=== PATIENT | male | born 1935 | race Caucasian/White ===

== ENCOUNTER → 2019-03-08 | Outpatient (CLI) | payer MEDICARE, OTHER ==
[~2019-03-08] MED LIST: REGADENOSON 0.4 MG/5 ML DISP.SYRIN. IV ONE
--- NOTE | 2019-03-08 08:23 | RAD ---
MR#: [id number] Date of Study: 03/08/2019 Ordering Physician: NICHOLAS EARLY, Referring Physician: NICHOLAS EARLY, Tech: Alonso Wong MBA, RDMS, RVT, RDCS, RTR APPROVED REPORT Patient Location : OUT-PATIENT Indications venous insufficiency Greater Saphenous Veins (GSV) Significant venous relux noted in the LEFT GSV at the following levels : Superficial Femoral Junction , Proximal Calf, Mid Thigh, Distal Thigh Lesser Saphenous Veins (LSV) Significant venous reflux is noted in the Left LSV. Perforators Thigh Perforators Calf Perforators Left: cm up from medial heel 15cm back from the anterior border of tibia 3 diameter 5mm. Findings Grayscale images of the right great saphenous vein do not reveal any obvious evidence of thrombus. Th e right great saphenous vein measures 5.3 mm and does not show any evidence of reflux. The right less er saphenous vein also does not show any evidence of reflux. The left great saphenous vein measures approximately 5.3 mm proximally. The great saphenous vein is n ot well visualized in the thigh. Below the knee it measures approximately 4.3 mm and has a maximum re flux time of 2.9 seconds. The left lesser saphenous vein has a reflux time of 1.1 seconds and measure s approximately 4.7 mm. There is subcutaneous soft tissue edema and a military communications specialist noted at approximately 15 cm up in 3 cm back on the left side from the ankle measuring 5.1 mm. Critical Notification Critical Value: No <Conclusion> 1. Positive for reflux in the left greater and lesser saphenous veins. Signed by : Elvis Rincon, Electronically Approved : 03/08/2019 08:22:33
--- NOTE | 2019-03-08 11:50 | RAD ---
MR#: [id number] Date of Study: 03/08/2019 Ordering Physician: NICHOLAS EARLY Referring Physician: HOLLIE RIVAS Tech: RT Randolph Light) (N) APPROVED REPORT Test Type: Pharmacological Stress Nurse/Tech: Cece Magana RN Test Indications: CAD Cardiac History: Enlarged heart Medications: See Electronic Medical Record Medical History: See Electronic Medical RecordSee Electronic Medical Record Resting ECG: SR with BBB Resting Heart Rate: 89 bpm Resting Blood Pressure: 137/81mmHg Pretest Chest Pain: No chest pain Nurse/Tech Notes S1,S2 and lungs are clear to auscultation. Consent: The procedure was explained to the patient in lay terms. Informed consent was witnessed. Shantanu eout was entered into [employer]. History and Stress Test performed by RT Violet CruzR) (N) Pharm. Details Pharmacologic stress testing was performed using 0.4mg per 5ml of regadenoson given intravenously ove r 7-10 seconds. Stress Symptoms Dyspnea,chest pressure midsternum 3/10 POST EXERCISE Reason for Termination: Infusion complete Target HR: No Max HR: 108 bpm Max Blood Pressure: 146/70mmHg Blood Pressure response to exercise: Normal blood pressure response during stress. Heart Rate response to exercise: WNL Chest Pain: Yes. see note above Arrhythmia: Yes. PVC ST Change: No. INTERPRETATION Stress EKG Conclusion: No evidence of stress induced EKG changes. Imaging Protocol IMAGE PROTOCOL: Rest Tc-99m/stress Tc-99m 1 day Rest: Stress: Viability: Radiopharm.Tc99m [id number] Sestamibi Dose10.8mCi 33mCi Duration 15min. 15min. Img Date 03/08/2019 03/08/2019 Inj-Img [id number]. 60min. Rest Admin Site:IV - Right AntecubitalAdministrator:RT Anthony (Krista)(N) Stress Admin Site: IV - Right AntecubitalAdministrator: PERNELL Sarmiento STRESS DATA End Diast. Vol.81.0mlLVEDV index BSA34.0ml End Syst. Vol.22.0mlLVESV index BSA9.0ml Myocardial Zcig506.0gEject. Bqgtyjfs57.0% Stress Scores Regional WT0.00Summed WT1.00 Regional WM3.00Summed WM8.00 The rest and stress images show normal perfusion, normal contraction and thickening. LV Perf. Quant 17 Seg. SSS4.00 17 Seg. SRS3.00 17 Seg. SDS2.00 Stress Defect Extent (% LAD)0.00Rest Defect Extent (% LAD)0.00Rev. Defect Extent (% LAD)0.00 Stress Defect Extent (% LCX) 47.50Rest Defect Extent (% LCX)30.00Rev. Defect Extent (% LCX)10.00 Stress Defect Extent (% RCA)0.00Rest Defect Extent (% RCA)0.00Rev. Defect Extent (% RCA)0.00 Stress Defect Extent (% MAN)8.30Rest Defect Extent (% MAN)5.20Rev. Defect Extent (% MAN)1.70 Other Information Quality:Good Risk Assessment: Low Risk Conclusion 1. No evidence of EKG changes with stress testing. 2. Normal perfusion at stress/rest. 3. Low risk study. 4. EF > 60%. Signed by : Elvis Rincon, Electronically Approved : 03/08/2019 11:50:26
== END | disposition home or self-care (01) ==
LOC: NM 07:19
PROVIDERS: ATTEND Internal Medicine Cardiovascular Disease
DX: I87.2 Venous insufficiency (chronic) (peripheral) (principal); I45.4 Nonspecific intraventricular block; I25.10 Atherosclerotic heart disease of native coronary artery without angina pectoris
CPT/HCPCS: 78452; 93017; 93970; J2785

== ENCOUNTER 2021-12-26 17:51 | Inpatient (IN) | payer MEDICARE, OTHER ==
[~2021-12-26] VITALS: Ht 182.9 cm; Wt 94.1 kg
[2021-12-26 18:28] VITALS: BP 123/73
[2021-12-26] MEDS ORDERED: HEPARIN for IV BOLUS 10,000 UNIT/10 ML VIAL. IV PRN ×2 (19:00)
[2021-12-26] MEDS ORDERED: HEPARIN 25,000UTS/250ML PREMIX 250 ML IV PRN (19:00)
--- NOTE | 2021-12-26 19:01 | PDOC1 ---
History and Physical Date of Admission Date of Admission DATE: 12/26/21 TIME: 18:57 Source Source: Chart review, Patient History of Present Illness History of Present Illness Mr. Berman went to the ER at [place] today and I was called to accept transfer here for DVT. ON review of the records, he has prior DVT and on Xarelto and had a IVC filter done. Mr Berman appears coherent and oriented and talkative but has no recollection of prior medical problems. 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 He arrived not Past Medical History Cardiovascular: CAD, HTN Heme/Onc: Other (DVT) Renal/: No pertinent hx Endocrine: No pertinent hx Past Surgical History Past Surgical History: No pertinent history Family History Family History: Family History Unknown Social History Smoke: No ALCOHOL: none Drugs: None Current Medications Current Medications Current Medications Heparin Sodium/ Dextrose 250 ml @ 0 mls/hr CONT PRN IV PER PROTOCOL; Start 12/26/21 at 19:00; Status UNV Heparin Sodium (Porcine) (Heparin Sodium) 2,450 unit PRN Q6HRS PRN IV FOR UFH LEVEL LESS THAN 0.2; Start 12/26/21 at 19:00; Status UNV Heparin Sodium (Porcine) (Heparin Sodium) 1,200 unit PRN Q6HRS PRN IV FOR UFH LEVEL 0.2 - 0.29; Start 12/26/21 at 19:00; Status UNV Diltiazem HCl 125 mg/Sodium Chloride 125 ml @ 5 mls/hr CONT PRN IV PER PROT OCOL; Start 12/26/21 at 19:00; Status UNV Active Scripts Active Reported No Known Medications Prior To Admisstion (Info) Each 1 Each 1X Allergies Allergies: Coded Allergies: No Known Drug Allergies (Unverified , 03/08/19) ROS General: No: Chills, Night Sweats, Fatigue, Malaise, Appetite, Other PSYCHOLOGICAL ROS: No: Anxiety, Behavioral Disorder, Concentration difficultie, Decreased libido, Depression, Disorientation, Hallucinations, Hostility, Irritablity, Memory difficulties, Mood Swings, Obsessive thoughts, Physical abuse, Sexual abuse, Sleep disturbances, Suicidal ideation, Other Eyes: No Blurry vision, No Decreased vision, No Double vision, No Dry eyes, No Excessive tearing, No Eye Pain, No Itchy Eyes, No Loss of vision, No P hotophobia, No Scotomata, No Uses contacts, No Uses glasses, No Other HEENT: No: Heacaches, Visual Changes, Hearing change, Nasal congestion, Nasal discharge, Oral lesions, Sinus pain, Sore Throat, Epistaxis, Sneezing, Snoring, Tinnitus, Vertigo, Vocal changes, Other Respiratory: No: Cough, Hemoptysis, Orthopnea, Pleuritic Pain, Shortness of breath, SOB with excertion, Sputum Changes, Stridor, Tachypnea, Wheezing, Other Cardiovascular: No Chest Pain, No Palpitations, No Orthopnea, No Paroxysmal Noc. Dyspnea, No Edema, No Lt Headedness, No Other Gastrointestinal: No Nausea, No Vomiting, No Abdominal Pain, No Diarrhea, No Constipation, No Melena, No Hematochezia, No Other Genitourinary: No Dysuria, No Frequency, No Incontinence, No Hematuria, No Retention, No Discharge, No Urgency, No Pain, No Flank Pain, No Other, No , No , No , No , No , No , No Musculoskeletal: Yes Joint Stiffness, Yes Muscular Weakness, Yes Pain In: (lower legs ); No Gait Disturbance, No Joint Pain, No Joint Swelling, No Muscle Pain, No Swelling In:, No Other Neurological: No Behavorial Changes, No Bowel/Bladder ControlChng, No Confusion, No Dizziness, No Gait Disturbance, No Headaches, No Impaired Co ord/balance, No Memory Loss, No Numbness/Tingling, No Seizures, No Speech Problems, No Tremors, No Visual Changes, No Weakness, No Other Skin: No Dry Skin, No Eczema, No Hair Changes, No Lumps, No Mole Changes, No Mottling, No Nail Changes, No Pruritus, No Rash, No Skin Lesion Changes, No Other, No Acne Physical Exam General: Alert, Cooperative, No acute distress, Other (not oriented ) Lungs: Other Heart: no murmurs, jugular vein distention, irregularly irregular, other (tachy, no m) Abdomen: Normal bowel sounds, Soft Rectal Exam: not examined Extremities: Other (Tr edema, ) Skin: No significant lesion (discolored legs from prior edema ) Neuro: Normal speech, Sensation intact Psych/Mental Status: Mood NL, Other (calm and pleasant and talkative ) Vitals Vitals Vital Signs Date Time Temp Pulse Resp B/P (MAP) Pulse Ox O2 Delivery O2 Flow Rate FiO2 12/26/21 18:28 98.2 76 17 123/73 (90) 100 Room Air 98.2 Labs Labs BUN 18, Cr 1.1 WBC 13.4 VTE Prophylaxis Ordered VTE Prophylaxis Devices: No VTE Pharmacological Prophylaxi: Yes Assessment/Plan Assessment/Plan he REPORTS TAKING NO MEDICINES acute diatolic CHF, atrial fibrillation with RVR acute bilateral DVT on imaging from [place], heparin gtt chronic diastolic CHF CAD s/p PCI/stenting. clinically stable Hypertension, Hyperlipidemia dementia Chronic venous insufficiency and recurrent DVT s/p IVC filter. was supposed to be taking Xarelto H/o CVA Hypothyroidism; last reported TSH 11. Justifications for Admission Other Justification KIRK BRODERICK MD Dec 26, 2021 19:01
[2021-12-26] MEDS: dilTIAZem HCL 125 MG in IV DEXTROSE 5% 100ML 100 ML IV PRN (19:28)
[2021-12-26 22:33] VITALS: BP 106/56
[2021-12-27 03:00] VITALS: BP 133/60
[2021-12-27] MEDS ORDERED: HEPARIN for IV BOLUS 10,000 UNIT/10 ML VIAL. IV PRN (03:30)
[2021-12-27 03:46] LABS: BASO # 0.1 x10^3/uL (0.0-0.2); BASO % 1 % (0-3); EOS # 0.3 x10^3/uL (0.0-0.7); EOS % 3 % (0-3); HEMATOCRIT 36.3 % (39.0-53.0); HEMOGLOBIN 11.7 g/dL (13.0-17.5); LYMPH # 1.2 x10^3/uL (1.0-4.8); LYMPH % 10 % (24-48); MEAN CORPUSCULAR HEMOGLOBIN 29 pg (25-35); MEAN CORPUSCULAR HGB CONC 32 g/dL (31-37); MEAN CORPUSCULAR VOLUME 91 fL (79-100); MONO # 1.2 x10^3/uL (0.0-1.1); MONO % 11 % (0-9); NEUT # 8.5 x10^3/uL (1.8-7.7); NEUT % 75 % (31-73); PLATELET COUNT 245 x10^3/uL (140-400); RED BLOOD COUNT 3.99 x10^6/uL (4.30-5.70); RED CELL DISTRIBUTION WIDTH 14.7 % (11.5-14.5); WHITE BLOOD COUNT 11.4 x10^3/uL (4.0-11.0)
[2021-12-27 05:03] LABS: ALBUMIN 2.1 g/dL (3.4-5.0); ALBUMIN/GLOBULIN RATIO 0.4 (1.0-1.7); CALCIUM 8.4 mg/dL (8.5-10.1); CREATININE 1.2 mg/dL (0.7-1.3); GFR 57.5; POTASSIUM 4.1 mmol/L (3.5-5.1); TOTAL BILIRUBIN 0.6 mg/dL (0.2-1.0); TOTAL PROTEIN 7.2 g/dL (6.4-8.2)
[2021-12-27 07:00] VITALS: BP 121/66
[2021-12-27] MEDS: HEPARIN for IV BOLUS 10,000 UNIT/10 ML VIAL. IV PRN (10:20)
--- NOTE | 2021-12-27 10:26 | PDOC2 ---
CONSULT Date of Consult Date of Consult DATE: 12/27/21 TIME: 10:20 Reason for Consult Reason for Consult: Deep venous thrombosis and peripheral arterial disease History of Present Illness Reason for Visit: The patient is an 86-year-old male who was transferred from [facility] by reports with deep venous thrombosis and peripheral arterial disease. The patient is a very poor historian and cannot give me details regarding his history. Per chart review it is reported that he has a history of deep venous thrombosis and an IVC filter in place. Venous duplex results are not available per my chart review. He was started on a heparin drip here in the hospital. He also at the outside hospital underwent a CT angiogram of his aorta with runoff which by report shows occlusive tibial artery disease, images are not available. The patient himself reports no pain or discomfort in his legs. He has chronic swelling and severe stasis dermatitis of the skin throughout the calf and ankles by examination. He is very pleasant and talkative but unable to give much of a history. Reason for Visit: Patient is an 86-year-old male who was transferred from Past Medical History Cardiovascular: CAD, HTN Heme/Onc: Other (DVT) Renal/: No pertinent hx Endocrine: No pertinent hx Past Surgical History Past Surgical History: No pertinent history Family History Family History: Family History Unknown Social History No ALCOHOL: none Drugs: None Current Medications Current Medications Current Medications Heparin Sodium/ Dextrose 250 ml @ 14.56 mls/ hr CONT PRN IV PER PROTOCOL Last administered on 12/26/21at 20:07; Start 12/26/21 at 19:00; Stop 12/27/21 at 03:26; Status DC Heparin Sodium (Porcine) (Heparin Sodium) 2,450 unit PRN Q6HRS PRN IV FOR UFH LEVEL LESS THAN 0.2 Last administered on 12/27/21at 03:10; Start 12/26/21 at 19:00; Stop 12/27/21 at 03:31; Status DC Heparin Sodium (Porcine) (Heparin Sodium) 1,200 unit PRN Q6HRS PRN IV FOR UFH LEVEL 0.2 - 0.29; Start 12/26/21 at 19:00; Stop 12/27/21 at 03:31; Status DC Diltiazem HCl 125 mg/Sodium Chloride 125 ml @ 5 mls/hr CONT PRN IV PER PROTOCOL; Start 12/26/21 at 19:00; Stop 12/26/21 at 19:00; Status DC Diltiazem HCl 125 mg/Dextrose 125 ml @ 5 mls/hr CONT PRN PRN IV SEE PROTOCOL Last administered on 12/26/21at 19:28; Start 12/26/21 at 19:15 Heparin Sodium/ Dextrose 250 ml @ 15.024 mls/ hr CONT PRN IV PER PROTOCOL; Start 12/27/21 at 03:30 Heparin Sodium (Porcine) (Heparin Sodium) 2,800 unit PRN Q6HRS PRN IV FOR UFH LEVEL LESS THAN 0.2; Start 12/27/21 at 03:30 Heparin Sodium (Porcine) (Heparin Sodium) 1,400 unit PRN Q6HRS PRN IV FOR UFH LEVEL 0.2 - 0.29; Start 12/27/21 at 03:30 Active Scripts Active Reported No Known Medications Prior To Admisstion (Info) Each 1 Each MC 1X Allergies Allergies: Coded Allergies: No Known Drug Allergies (Unverified , 03/08/19) Physical Exam Physical Exam Awake and alert Neck is supple Bilateral upper extremities are warm without edema, palpable radial pulses Abdomen is soft, nondistended and nontender Bilateral groins have palpable femoral pulses, the skin in the left groin is very inflamed Bilateral lower extremities are warm with mild swelling of the calf and ankles, he has severe brownish hyperpigmentation and thickening of the skin throughout the calf and ankles consistent with chronic stasis dermatitis of the skin. No significant swelling in the feet. There are few superficial skin scabs in different areas of his left and right foot but no deep open wounds and no gangrene. On vascular examination he has palpable bilateral femoral pulses, he has palpable bilateral dorsalis pedis pulses, I do not palpate posterior tibial pulses, his feet are pink and warm with intact motor and sensory function and no signs of ischemia. Neurologic exam awake and alert, poor historian but has normal speech, normal strength in all 4 extremities, no gross neurologic deficits Vitals VITALS Vital Signs Date Time Temp Pulse Resp B/P (MAP) Pulse Ox O2 Delivery O2 Flow Rate FiO2 12/27/21 08:00 Room Air 12/27/21 07:00 98.8 73 18 121/66 (84) 94 98.8 Labs Labs Laboratory Tests Test 12/27/21 02:00 12/27/21 09:26 White Blood Count 11.4 x10^3/uL (4.0-11.0) Red Blood Count 3.99 x10^6/uL (4.30-5.70) Hemoglobin 11.7 g/dL (13.0-17.5) Hematocrit 36.3 % (39.0-53.0) Mean Corpuscular Volume 91 fL (79-100) Mean Corpuscular Hemoglobin 29 pg (25-35) Mean Corpuscular Hemoglobin Concent 32 g/dL (31-37) Red Cell Distribution Width 14.7 % (11.5-14.5) Platelet Count 245 x10^3/uL (140-400) Neutrophils (%) (Auto) 75 % (31-73) Lymphocytes (%) (Auto) 10 % (24-48) Monocytes (%) (Auto) 11 % (0-9) Eosinophils (%) (Auto) 3 % (0-3) Basophils (%) (Auto) 1 % (0-3) Neutrophils # (Auto) 8.5 x10^3/uL (1.8-7.7) Lymphocytes # (Auto) 1.2 x10^3/uL (1.0-4.8) Monocytes # (Auto) 1.2 x10^3/uL (0.0-1.1) Eosinophils # (Auto) 0.3 x10^3/uL (0.0-0.7) Basophils # (Auto) 0.1 x10^3/uL (0.0-0.2) Heparin Anti-Xa Act, Unfractionated < 0.10 IU/mL (0.30-0.70) 0.18 IU/mL (0.30-0.70) Sodium Level 137 mmol/L (136-145) Potassium Level 4.1 mmol/L (3.5-5.1) Chloride Level 102 mmol/L (98-107) Carbon Dioxide Level 28 mmol/L (21-32) Anion Gap 7 (6-14) Blood Urea Nitrogen 16 mg/dL (8-26) Creatinine 1.2 mg/dL (0.7-1.3) Estimated GFR (Cockcroft-Gault) 57.5 BUN/Creatinine Ratio 13 (6-20) Glucose Level 124 mg/dL (70-99) Calcium Level 8.4 mg/dL (8.5-10.1) Total Bilirubin 0.6 mg/dL (0.2-1.0) Aspartate Amino Transf (AST/SGOT) 30 U/L (15-37) Alanine Aminotransferase (ALT/SGPT) 15 U/L (16-63) Alkaline Phosphatase 73 U/L (46-116) DD-Eao-P-Type Natriuretic Peptide 769 pg/mL (0-449) Total Protein 7.2 g/dL (6.4-8.2) Albumin 2.1 g/dL (3.4-5.0) Albumin/Globulin Ratio 0.4 (1.0-1.7) Laboratory Tests Test 12/27/21 02:00 12/27/21 09:26 White Blood Count 11.4 x10^3/uL (4.0-11.0) Red Blood Count 3.99 x10^6/uL (4.30-5.70) Hemoglobin 11.7 g/dL (13.0-17.5) Hematocrit 36.3 % (39.0-53.0) Mean Corpuscular Volume 91 fL (79-100) Mean Corpuscular Hemoglobin 29 pg (25-35) Mean Corpuscular Hemoglobin Concent 32 g/dL (31-37) Red Cell Distribution Width 14.7 % (11.5-14.5) Platelet Count 245 x10^3/uL (140-400) Neutrophils (%) (Auto) 75 % (31-73) Lymphocytes (%) (Auto) 10 % (24-48) Monocytes (%) (Auto) 11 % (0-9) Eosinophils (%) (Auto) 3 % (0-3) Basophils (%) (Auto) 1 % (0-3) Neutrophils # (Auto) 8.5 x10^3/uL (1.8-7.7) Lymphocytes # (Auto) 1.2 x10^3/uL (1.0-4.8) Monocytes # (Auto) 1.2 x10^3/uL (0.0-1.1) Eosinophils # (Auto) 0.3 x10^3/uL (0.0-0.7) Basophils # (Auto) 0.1 x10^3/uL (0.0-0.2) Heparin Anti-Xa Act, Unfractionated < 0.10 IU/mL (0.30-0.70) 0.18 IU/mL (0.30-0.70) Sodium Level 137 mmol/L (136-145) Potassium Level 4.1 mmol/L (3.5-5.1) Chloride Level 102 mmol/L (98-107) Carbon Dioxide Level 28 mmol/L (21-32) Anion Gap 7 (6-14) Blood Urea Nitrogen 16 mg/dL (8-26) Creatinine 1.2 mg/dL (0.7-1.3) Estimated GFR (Cockcroft-Gault) 57.5 BUN/Creatinine Ratio 13 (6-20) Glucose Level 124 mg/dL (70-99) Calcium Level 8.4 mg/dL (8.5-10.1) Total Bilirubin 0.6 mg/dL (0.2-1.0) Aspartate Amino Transf (AST/SGOT) 30 U/L (15-37) Alanine Aminotransferase (ALT/SGPT) 15 U/L (16-63) Alkaline Phosphatase 73 U/L (46-116) AA-Llj-N-Type Natriuretic Peptide 769 pg/mL (0-449) Total Protein 7.2 g/dL (6.4-8.2) Albumin 2.1 g/dL (3.4-5.0) Albumin/Globulin Ratio 0.4 (1.0-1.7) Assessment/Plan Assessment/Plan 86-year-old male with bilateral lower extremity peripheral arterial disease and no significant symptoms. He has no ischemic rest pain. He has a few skin scabs but no deep wounds. I cannot by history tell if he claudicates he is a very poor historian. Likely no arterial intervention is needed. We will obtain the CT angiogram films to review. By chart review he has been admitted for deep venous thrombosis however I do not have an ultrasound, we will order bilateral lower extremity venous ultrasound here. He does have a history by chart review of chronic deep venous thrombosis and has an IVC filter in place. On examination he has chronic venous stasis skin changes of the bilateral lower extremities however no signs of infection or ulceration. Agree with continued full anticoagulation. TAMIKO ALDRICH MD Dec 27, 2021 10:26
[2021-12-27 11:00] VITALS: BP 125/64
--- NOTE | 2021-12-27 11:30 | PDOC ---
[employer] PROGRESS NOTE Date of Service DOS: DATE: 12/27/21 TIME: 11:29 Chief Complaint Chief Complaint acute diatolic CHF, atrial fibrillation with RVR acute bilateral DVT on imaging from [place], heparin gtt chronic diastolic CHF CAD s/p PCI/stenting. clinically stable Hypertension, Hyperlipidemia dementia Chronic venous insufficiency and recurrent DVT s/p IVC filter. was supposed to be taking Xarelto H/o CVA Hypothyroidism; last reported TSH 11. History of Present Illness History of Present Illness Mr. Berman went to the ER at [place] today and I was called to accept transfer here for DVT. ON review of the records, he has prior DVT and on Xarelto and had a IVC filter done. Mr Berman appears coherent and oriented and talkative but has no recollection of prior medical problems. 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 He arrived on heparin gtt. he seemed post to surgery in consultation 12/27: Seen bedside on heparin gtt. Has little bit of leg pain but otherwise no complaints today. No shortness of breath. Very weak and confused. Vitals/I&O Vitals/I&O: Vital Signs Date Time Temp Pulse Resp B/P (MAP) Pulse Ox O2 Delivery O2 Flow Rate FiO2 12/27/21 11:00 98.9 79 18 125/64 (84) 96 Room Air 98.9 I & O 12/26/21 12/26/21 12/27/21 15:00 23:00 07:00 Intake Total 235 ml Output Total 250 ml 250 ml Balance -250 ml -15 ml Physical Exam General: Alert, Cooperative, No acute distress, Other (not oriented ) Abdomen: Normal bowel sounds, Soft Extremities: Other (Tr edema, ) Skin: No significant lesion (discolored legs from prior edema ) Labs Labs: Laboratory Tests Test 12/27/21 02:00 12/27/21 09:26 White Blood Count 11.4 x10^3/uL (4.0-11.0) Red Blood Count 3.99 x10^6/uL (4.30-5.70) Hemoglobin 11.7 g/dL (13.0-17.5) Hematocrit 36.3 % (39.0-53.0) Mean Corpuscular Volume 91 fL (79-100) Mean Corpuscular Hemoglobin 29 pg (25-35) Mean Corpuscular Hemoglobin Concent 32 g/dL (31-37) Red Cell Distribution Width 14.7 % (11.5-14.5) Platelet Count 245 x10^3/uL (140-400) Neutrophils (%) (Auto) 75 % (31-73) Lymphocytes (%) (Auto) 10 % (24-48) Monocytes (%) (Auto) 11 % (0-9) Eosinophils (%) (Auto) 3 % (0-3) Basophils (%) (Auto) 1 % (0-3) Neutrophils # (Auto) 8.5 x10^3/uL (1.8-7.7) Lymphocytes # (Auto) 1.2 x10^3/uL (1.0-4.8) Monocytes # (Auto) 1.2 x10^3/uL (0.0-1.1) Eosinophils # (Auto) 0.3 x10^3/uL (0.0-0.7) Basophils # (Auto) 0.1 x10^3/uL (0.0-0.2) Heparin Anti-Xa Act, Unfractionated < 0.10 IU/mL (0.30-0.70) 0.18 IU/mL (0.30-0.70) Sodium Level 137 mmol/L (136-145) Potassium Level 4.1 mmol/L (3.5-5.1) Chloride Level 102 mmol/L (98-107) Carbon Dioxide Level 28 mmol/L (21-32) Anion Gap 7 (6-14) Blood Urea Nitrogen 16 mg/dL (8-26) Creatinine 1.2 mg/dL (0.7-1.3) Estimated GFR (Cockcroft-Gault) 57.5 BUN/Creatinine Ratio 13 (6-20) Glucose Level 124 mg/dL (70-99) Calcium Level 8.4 mg/dL (8.5-10.1) Total Bilirubin 0.6 mg/dL (0.2-1.0) Aspartate Amino Transf (AST/SGOT) 30 U/L (15-37) Alanine Aminotransferase (ALT/SGPT) 15 U/L (16-63) Alkaline Phosphatase 73 U/L (46-116) YY-Kft-I-Type Natriuretic Peptide 769 pg/mL (0-449) Total Protein 7.2 g/dL (6.4-8.2) Albumin 2.1 g/dL (3.4-5.0) Albumin/Globulin Ratio 0.4 (1.0-1.7) Comment Review of Relevant I have reviewed the following items gary (where applicable) has been applied. Medications: Current Medications Medications (Trade) Dose Ordered Sig/Mckenzie Route PRN Reason Start Time Stop Time Status Last Admin Dose Admin Heparin Sodium/ Dextrose 250 ml @ 14.56 mls/ hr CONT PRN IV PER PROTOCOL 12/26/21 19:00 12/27/21 03:26 DC 12/26/21 20:07 Heparin Sodium (Porcine) (Heparin Sodium) 2,450 unit PRN Q6HRS PRN IV FOR UFH LEVEL LESS THAN 0.2 12/26/21 19:00 12/27/21 03:31 DC 12/27/21 03:10 Diltiazem HCl 125 mg/Dextrose 125 ml @ 5 mls/hr CONT PRN PRN IV SEE PROTOCOL 12/26/21 19:15 12/26/21 19:28 Heparin Sodium (Porcine) (Heparin Sodium) 2,800 unit PRN Q6HRS PRN IV FOR UFH LEVEL LESS THAN 0.2 12/27/21 03:30 12/27/21 10:20 Justifications for Admission Other Justification GLORIA JAIMES MD Dec 27, 2021 11:30
[2021-12-27] MEDS: dilTIAZem HCL 125 MG in IV DEXTROSE 5% 100ML 100 ML IV PRN (13:07)
[2021-12-27] MEDS: HEPARIN 25,000UTS/250ML PREMIX 250 ML IV PRN (13:14)
[2021-12-27 15:00] VITALS: BP 104/56
[2021-12-27 19:00] VITALS: BP 127/67
[2021-12-27 23:14] VITALS: BP 122/57
[2021-12-28] MEDS: HEPARIN for IV BOLUS 10,000 UNIT/10 ML VIAL. IV PRN (00:09)
[2021-12-28] MEDS: HEPARIN 25,000UTS/250ML PREMIX 250 ML IV PRN ×2 (00:17→11:20)
[2021-12-28 03:21] VITALS: BP 107/56
[2021-12-28 07:00] VITALS: BP 128/76
[2021-12-28 07:48] LABS: HEMATOCRIT 36.3 % (39.0-53.0); HEMOGLOBIN 11.6 g/dL (13.0-17.5); RED CELL DISTRIBUTION WIDTH 14.5 % (11.5-14.5); WHITE BLOOD COUNT 11.4 x10^3/uL (4.0-11.0)
[2021-12-28] MEDS ORDERED: fentaNYL PF VIAL 100 MCG/2 ML VIAL IVP PRN (09:00)
[2021-12-28] MEDS ORDERED: ACETAMINOPHEN 325 MG TABLET. PO PRN (09:00)
[2021-12-28] MEDS ORDERED: ONDANSETRON PF 4 MG/2 ML VIAL. IVP PRN (09:00)
--- NOTE | 2021-12-28 09:03 | PDOC ---
[employer] PROGRESS NOTE Date of Service DOS: DATE: 12/28/21 TIME: 09:01 Chief Complaint Chief Complaint Acute bilateral DVT on imaging from [facility], heparin gtt Peripheral arterial disease - not an excellent historian, though seems to have exertional pain no rest claudication Acute diastolic CHF Atrial fibrillation with RVR Chronic diastolic CHF CAD s/p PCI/stenting. clinically stable Hypertension Hyperlipidemia Dementia Chronic venous insufficiency and recurrent DVT s/p IVC filter. was supposed to be taking Xarelto H/o CVA Hypothyroidism; last reported TSH 11. FEN - Cardiac diet PPX - heparin GTT FULL CODE Dispo - inpatient History of Present Illness History of Present Illness Mr Berman is an 86yo male with PMHx HTN, HLD, CAD, chronic diastolic CHF, CKD, dementia, and prior DVT with IVF filter in place who presented to [facility] ED in [place], [place] on 12/26/2021 with his family c/o leg discomfort with difficulty ambulating and progressive abdominal discomfort for the 3 days leading up to ED presentation. Family notes that he has not been eating well. At rest he does not have any pain complaints but with any ambulation he has complaints. He himself denies this though his family confirms. Labs with WBC 13.7, Hb 12.2, platelets 244, INR 1.1, PTT 26, NA 137, K4, BUN 18, CR 1.1, glucose 123, calcium 8.1, lactic acid 1.8, albumin 2.2, lipase 34, LFTs otherwise within normal laboratory limits, NT proBNP was 793 and high- sensitivity troponin was 8 Chest radiograph with mild interstitial thickening and small left pleural effusion Venous dopplers of bilateral lower extremities revealed bilateral DVTs. Arterial duplex bilateral lower extremities noted no flow in left distal posterior tibial and peroneal arteries and mildly elevated velocity in bilateral SFA. Due to left leg concern for occlusive disease he underwent CT angio aorta with femoral runoff which confirmed narrowing of bilateral SFAs and degraded evaluation for distal lower extremities due to contrast bolus timing. Due to concern for peripheral arterial disease left greater than right was initiated on heparin gtt and transferred to [facility] for vascular surgery evaluation and further care. 12/27: Seen bedside on heparin gtt. Went into afib with RVR, on dilt gtt. Has little bit of leg pain but otherwise no complaints today. No shortness of breath. Very weak and confused. 12/28: Seen bedside thinks his abdominal pain is better and leg pain is stable. He has not been up out of bed now been on heparin GTT for 48 hours. Heart rate and rhythm is variable now seems to be going in and out of sinus rhythm will obtain EKG consult cardiology. Vitals/I&O Vitals/I&O: Vital Signs Date Time Temp Pulse Resp B/P (MAP) Pulse Ox O2 Delivery O2 Flow Rate FiO2 12/28/21 03:21 97.5 84 18 107/56 (73) 98 Room Air 97.5 I & O 12/27/21 12/27/21 12/28/21 15:00 23:00 07:00 Intake Total 300 ml 100 ml 150 ml Output Total 350 ml 400 ml 300 ml Balance -50 ml -300 ml -150 ml Physical Exam General: Alert, Cooperative, No acute distress, Other (not oriented ) Abdomen: Normal bowel sounds, Soft Extremities: Other (Tr edema, ) Skin: No significant lesion (discolored legs from prior edema ) Labs Labs: Laboratory Tests Test 12/27/21 09:26 12/27/21 16:35 12/27/21 23:25 12/28/21 06:20 Heparin Anti-Xa Act, Unfractionated 0.18 IU/mL (0.30-0.70) 0.26 IU/mL (0.30-0.70) 0.11 IU/mL (0.30-0.70) 0.41 IU/mL (0.30-0.70) White Blood Count 11.4 x10^3/uL (4.0-11.0) Red Blood Count 4.00 x10^6/uL (4.30-5.70) Hemoglobin 11.6 g/dL (13.0-17.5) Hematocrit 36.3 % (39.0-53.0) Mean Corpuscular Volume 91 fL (79-100) Mean Corpuscular Hemoglobin 29 pg (25-35) Mean Corpuscular Hemoglobin Concent 32 g/dL (31-37) Red Cell Distribution Width 14.5 % (11.5-14.5) Platelet Count 277 x10^3/uL (140-400) Comment Review of Relevant I have reviewed the following items gary (where applicable) has been applied. Justifications for Admission Other Justification GLORIA JAIMES MD Dec 28, 2021 09:03
[2021-12-28 11:00] VITALS: BP 152/63
--- NOTE | 2021-12-28 11:45 | CONS ---
DATE OF CONSULTATION: 12/28/2021 REASON FOR CONSULTATION: Atrial fibrillation. HISTORY OF PRESENT ILLNESS: The patient is an 86-year-old man who has been transferred here from the ER at [facility] for treatment of DVT. He apparently on review of his records, he has known history of DVT and also has a prior history of IVC filter and is currently on anticoagulation with Xarelto. The patient was also admitted of note in 09/2021 to [facility] for concerns of possible arterial occlusion of the lower extremity, but there was no acute peripheral arterial disease pathology to be noted. He was seen by our consultation of Cardiology service at [facility] and was planned for outpatient ischemic evaluation. Today, the patient denies any chest pain, dyspnea, orthopnea or PND. No syncope or palpitations. The patient unfortunately is limited in his history due to Encephalopathy with underlying dementia. PAST MEDICAL HISTORY: 1. Chronic diastolic heart failure. 2. History of coronary artery disease, status post PCI. 3. Hypertension. 4. Dyslipidemia. 5. Dementia. 6. Chronic venous insufficiency and prior deep venous thrombosis. 7. CVA. REVIEW OF SYSTEMS: Negative unless otherwise mentioned above in HPI. FAMILY HISTORY: Noncontributory. SOCIAL HISTORY: Unremarkable. ALLERGIES: No known drug allergies. CURRENT CARDIOVASCULAR MEDICATIONS: As follows: 1. Heparin drip. 2. Diltiazem drip. PHYSICAL EXAMINATION: VITAL SIGNS: Afebrile, 86, 18, 128/76, 95% on room air. GENERAL: He is alert and oriented to self, but not place or time. HEAD AND NECK: Unremarkable. CARDIAC: Irregular rate and rhythm. LUNGS: Notable for decreased breath sounds at the bases. ABDOMEN: Soft and nondistended and nontender. NEUROLOGIC: No obvious focal deficits. VASCULAR EXAMINATION: The patient has palpable bilateral femoral pulses and DP pulses. He has signs of chronic venous stasis. NEUROLOGIC: Unremarkable. DIAGNOSTIC STUDIES: Hemoglobin 11.6, platelets 277. BNP is mildly elevated at 769. The patient is on a heparin drip and therapeutic. Prior echocardiogram from approximately 2 years ago demonstrates normal LV systolic function. IMPRESSION: 1. Paroxysmal atrial fibrillation in the setting of multiple comorbidities as noted. 2. History of deep venous thrombosis, status post IVC filter and on anticoagulation with Xarelto. 3. Hypertension. 4. Coronary artery disease, status post remote percutaneous coronary intervention. RECOMMENDATIONS: 1. At this present time, agree with reinitiation of oral diltiazem and Xarelto. 2. We will obtain routine echocardiogram. 3. Supportive care from a cardiovascular standpoint. No further cardiac testing necessary at this time on an inpatient basis. Thank you for this consultation. ALEE DR: Yadira TID: [id number]
[2021-12-28] MEDS: dilTIAZem HCL 125 MG in IV DEXTROSE 5% 100ML 100 ML IV PRN (11:53)
[2021-12-28] MEDS: NYSTATIN TOPICAL POWDER 15GM BOTTLE. TP SCH ×2 (14:26→21:00)
[2021-12-28 14:59] VITALS: BP 142/75
[2021-12-28 19:36] VITALS: BP 144/67
[2021-12-28] MEDS: PSYLLIUM HUSK (SUGAR FREE) 1 PKT PACKET PO SCH (20:59)
[2021-12-28] MEDS: traMADol 50 MG TABLET PO PRN (21:00)
[2021-12-28] MEDS ORDERED: APIXABAN 5 MG TABLET. PO SCH (21:00)
[2021-12-28] MEDS: METOPROLOL TART IMMED RELEASE 25 MG TABLET. PO SCH (21:00)
[2021-12-28 22:25] VITALS: BP 133/63
[2021-12-29 02:25] VITALS: BP 111/55
[2021-12-29 07:00] VITALS: BP 123/75
--- NOTE | 2021-12-29 09:08 | PDOC ---
Provider Note Date of Service: DATE: 12/29/21 TIME: 09:05 Provider Note Awake and alert Afebrile and vital signs are stable Abdomen is soft, nondistended and nontender Right groin skin is clear with a palpable femoral pulse, he does have inflammation of the skin in the left groin Bilateral lower extremities with venous stasis skin changes of brownish hyperpigmentation and thickening throughout the calf and ankles Left foot has small areas of skin ulceration on the medial foot and toes, the forefoot is very cool and the toes are cyanotic, intact motor and sensory function. On Doppler examination he has dopplerable left dorsalis pedis and posterior tibial signals with they are monophasic. His right foot is nice and pink and warm throughout the foot and toes with good capillary refill, no major areas of skin breakdown in the right foot. Much stronger dorsalis pedis and posterior tibial Doppler signals in the right foot. No significant swelling of the lower extremities. I was able to review further imaging studies the CT angiogram from the outside hospital reports significant stenosis within the left superficial femoral artery and likely tibial disease. Venous duplex scan report from the outside facility reports deep venous thrombosis within the bilateral popliteal and tibial veins. A/P: 59-year-old male with bilateral lower extremity peripheral arterial disease worse in the left leg compared to the right leg. He does have very small superficial ulcers in the skin of the left foot and toes, the toes and forefoot are cool and dusky today, no acute ischemia but certainly warrants further vascular imaging and possible intervention. The right foot is very warm and pink. We will plan an angiogram of the bilateral lower extremities with possible left leg intervention tomorrow. Will hold the Xarelto and continue his heparin drip. No venous intervention is needed since the deep venous thrombosis is distal in the popliteal and tibial veins and he has no significant swelling on examination. Justifications for Admission Other Justification TAMIKO ALDRICH MD Dec 29, 2021 09:08
[2021-12-29] MEDS: NYSTATIN TOPICAL POWDER 15GM BOTTLE. TP SCH ×2 (09:55→21:58)
[2021-12-29] MEDS: METOPROLOL TART IMMED RELEASE 25 MG TABLET. PO SCH ×2 (09:55→21:56)
[2021-12-29] MEDS ORDERED: HEPARIN 25,000UTS/250ML PREMIX 250 ML IV PRN (10:15)
[2021-12-29] MEDS ORDERED: HEPARIN for IV BOLUS 10,000 UNIT/10 ML VIAL. IV PRN ×5 (10:15→10:30)
[2021-12-29 10:59] VITALS: BP 125/79
--- NOTE | 2021-12-29 11:04 | PDOC ---
[employer] PROGRESS NOTE Date of Service DOS: DATE: 12/29/21 TIME: 10:15 Chief Complaint Chief Complaint Acute bilateral DVT on imaging from [facility], heparin gtt Peripheral arterial disease - not an excellent historian, though seems to have exertional pain no rest claudication Acute diastolic CHF Atrial fibrillation with RVR Chronic diastolic CHF CAD s/p PCI/stenting. clinically stable Hypertension Hyperlipidemia Dementia Chronic venous insufficiency and recurrent DVT s/p IVC filter. was supposed to be taking Xarelto H/o CVA Hypothyroidism; last reported TSH 11. FEN - Cardiac diet PPX - heparin GTT FULL CODE Dispo - inpatient History of Present Illness History of Present Illness Mr Berman is an 86yo male with PMHx HTN, HLD, CAD, chronic diastolic CHF, CKD, dementia, and prior DVT with IVF filter in place who presented to [facility] in [place], [place] on 12/26/2021 with his family c/o leg discomfort with difficulty ambulating and progressive abdominal discomfort for the 3 days leading up to ED presentation. Family notes that he has not been eating well. At rest he does not have any pain complaints but with any ambulation he has complaints. He himself denies this though his family confirms. Labs with WBC 13.7, Hb 12.2, platelets 244, INR 1.1, PTT 26, NA 137, K4, BUN 18, CR 1.1, glucose 123, calcium 8.1, lactic acid 1.8, albumin 2.2, lipase 34, LFTs otherwise within normal laboratory limits, NT proBNP was 793 and high- sensitivity troponin was 8 Chest radiograph with mild interstitial thickening and small left pleural effusion Venous dopplers of bilateral lower extremities revealed bilateral DVTs. Arterial duplex bilateral lower extremities noted no flow in left distal posterior tibial and peroneal arteries and mildly elevated velocity in bilateral SFA. Due to left leg concern for occlusive disease he underwent CT angio aorta with femoral runoff which confirmed narrowing of bilateral SFAs and degraded evaluation for distal lower extremities due to contrast bolus timing. Due to concern for peripheral arterial disease left greater than right was initiated on heparin gtt and transferred to [facility] for vascular surgery evaluation and further care. 12/27: Seen bedside on heparin gtt. Went into afib with RVR, on dilt gtt. Has little bit of leg pain but otherwise no complaints today. No shortness of breath. Very weak and confused. 12/28: Seen bedside thinks his abdominal pain is better and leg pain is stable. He has not been up out of bed now been on heparin GTT for 48 hours. Heart rate and rhythm is variable now seems to be going in and out of sinus rhythm will obtain EKG consult cardiology. 12/29: Seen bedside. Still some decreased pulses in left leg. Discussed with vascular surgery will have selective angiography. Will transition from Eliquis back to heparin gtt. for this. Will ultimately need to be on metoprolol and Eliquis on discharge when ready in the next 1 few days but needs skilled services on discharge will need group home facility. Discussed with nursing Vitals/I&O Vitals/I&O: Vital Signs Date Time Temp Pulse Resp B/P (MAP) Pulse Ox O2 Delivery O2 Flow Rate FiO2 12/29/21 09:55 89 150/69 12/29/21 07:00 98.1 16 94 Room Air 98.1 I & O 12/28/21 12/28/21 12/29/21 15:00 23:00 07:00 Intake Total 600 ml 300 ml 600 ml Output Total 400 ml 100 ml 150 ml Balance 200 ml 200 ml 450 ml Physical Exam General: Alert, Cooperative, No acute distress, Other (not oriented ) Abdomen: Normal bowel sounds, Soft Extremities: Other (Tr edema, ) Skin: No significant lesion (discolored legs from prior edema ) Labs Labs: Laboratory Tests Test 12/28/21 12:25 12/28/21 18:17 Heparin Anti-Xa Act, Unfractionated 0.59 IU/mL (0.30-0.70) 0.74 IU/mL (0.30-0.70) Comment Review of Relevant I have reviewed the following items gary (where applicable) has been applied. Medications: Current Medications Medications (Trade) Dose Ordered Sig/Mckenzie Route PRN Reason Start Time Stop Time Status Last Admin Dose Admin Psyllium Hydrophilic Mucilloid (Metamucil Fiber Packet) 1 pkt QHS PO 12/28/21 21:00 12/28/21 20:59 Nystatin (Nystop) 1 gladis BID TP 12/28/21 13:00 12/29/21 09:55 Apixaban (Eliquis) 5 mg BID PO 12/28/21 21:00 12/29/21 09:03 DC 12/28/21 21:00 Metoprolol Tartrate (Lopressor) 25 mg BID PO 12/28/21 21:00 12/29/21 09:55 Justifications for Admission Other Justification GLORIA JAIMES MD Dec 29, 2021 11:04
[2021-12-29] MEDS: HEPARIN 25,000UTS/250ML PREMIX 250 ML IV PRN (11:45)
--- NOTE | 2021-12-29 14:52 | NUR ---
SS following for discharge planning. SS reviewed pt chart and discussed with pt RN. Pt is from home alone and is currently on room air. Cardiology and Vascular following. Heparin drip. Tentative procedure with Vascular tomorrow. PT/OT recommended fci unit. SS met with pt and discussed discharge planning and fci unit. Pt requested referrals to [facility], ; fax [phone], and [facility], ; fax [phone]. SS will continue to follow for discharge planning. Addendum: 12/29/21 at 1525 by BLAKE SMITH SS Pt's family requesting [facility], ; fax [phone]. Referral sent as requested.
[2021-12-29 15:00] VITALS: BP 123/65
--- NOTE | 2021-12-29 15:06 | CARD ---
MR#: [id number] Date of Study: 12/29/2021 Ordering Physician: NAM OWENS, Referring Physician: NAM OWENS, Tech: Ruthy Reid [facility] APPROVED REPORT EXAM: Two-dimensional and M-mode echocardiogram with Doppler and color Doppler. Other Information Quality : Technically LimitedHR: 79bpm Rhythm : NSR INDICATION Dyspnea RISK FACTORS Hypertension Obesity Diabetes 2D DIMENSIONS Left Atrium(2D)3.4 (1.6-4.0cm)IVSd1.2 (0.7-1.1cm) Aortic Root(2D)3.8 (2.0-3.7cm)LVDd4.0 (3.9-5.9cm) LVOT Diameter2.2 (1.8-2.4cm)PWd1.3 (0.7-1.1cm) LVDs3.7 (2.5-4.0cm)FS (%) 9.4 % SV15.0 mlLVEF(%)21.0 (>50%) Aortic Valve AoV Peak Dewayne.271.7cm/sAoV VTI57.1cm AO Peak GR.29.5mmHgLVOT Peak Dewayne.105.5cm/s AO Mean GR.17mmHgAVA (VMAX)1.45cm2 Mitral Valve MV E Laqtmizx361.9cm/sMV DECEL CFJR109bp MV A Njawcwfu085.5cm/sE/A Ratio0.8 Tricuspid Valve TR P. Kowwyuts495ym/sTR Peak Gr.28mmHg LEFT VENTRICLE The left ventricle is normal size. There is mild concentric left ventricular hypertrophy. The left ve ntricular systolic function is normal and the ejection fraction is within normal range. Estimated eje ction fraction 50-55%. There is normal LV segmental wall motion. Transmitral Doppler flow pattern is Grade I-abnormal relaxation pattern. RIGHT VENTRICLE The right ventricle is normal size. There is normal right ventricular wall thickness. The right ventr icular systolic function is normal. ATRIA The left atrium size is normal. The right atrium is borderline dilated. The interatrial septum is int act with no evidence for an atrial septal defect or patent foramen ovale as noted on 2-D or Doppler i meir. AORTIC VALVE The aortic valve is calcified with restricted leaflet motion. Doppler and Color Flow revealed no sign ificant aortic regurgitation. There is moderate aortic stenosis. MG 25 mm Hg. MITRAL VALVE The mitral valve is normal in structure and function. There is no evidence of mitral valve prolapse. There is no mitral valve stenosis. Doppler and Color-flow revealed trace mitral regurgitation. TRICUSPID VALVE The tricuspid valve is normal in structure and function. Doppler and Color Flow revealed trace tricus pid regurgitation. Estimated PAP 21 mmHg. There is no tricuspid valve stenosis. PULMONIC VALVE Doppler and Color Flow revealed mild pulmonic valvular regurgitation. There is no pulmonic valvular s tenosis. GREAT VESSELS The aortic root is mildly enlarged. The ascending aorta is normal in size. The IVC is normal in size and collapses >50% with inspiration. PERICARDIAL EFFUSION There is no evidence of significant pericardial effusion. Critical Notification Critical Value: No <Conclusion> The left ventricular systolic function is normal and the ejection fraction is within normal range. E stimated ejection fraction 50-55%. There is normal LV segmental wall motion. There is moderate aortic stenosis. MG 25 mm Hg. Signed by : Nam Owens, Electronically Approved : 12/29/2021 15:06:13
--- NOTE | 2021-12-29 15:36 | EKG ---
[facility] [address] [place] [address] Test Date: 2021-12-29 Test Time: 12:18:16 Pat Name: CLIFF ALVES Department: Room: [facility] Gender: M Airconditioning Engineer: MARY : [id number] Requested By: GLORIA JAIMES Order Number: [id number] Reading MD: Measurements Intervals Newton Rate: 75 P: -52 OK: 122 QRS: 76 QRSD: 96 T: 11 QT: 414 QTc: 465 Interpretive Statements SINUS RHYTHM ATRIAL PREMATURE COMPLEX(ES) LEFT ATRIAL ABNORMALITY INCOMPLETE RIGHT BUNDLE BRANCH BLOCK ABNORMAL ECG RI6.01 No previous ECG available for comparison
[2021-12-29] MEDS ORDERED: ANTI-COAG MONITOR BY PHARMACY. MC PRN (16:45)
[2021-12-29 19:35] VITALS: BP 101/52
[2021-12-29] MEDS: PSYLLIUM HUSK (SUGAR FREE) 1 PKT PACKET PO SCH (21:56)
[2021-12-29 22:13] VITALS: BP 129/60
[2021-12-30] VITALS (13 sets, daily range): BP systolic 104–145; BP diastolic 57–99
[2021-12-30] MEDS: HEPARIN 25,000UTS/250ML PREMIX 250 ML IV PRN ×2 (01:41→14:12)
[2021-12-30 05:55] LABS: HEMATOCRIT 38.8 % (39.0-53.0); HEMOGLOBIN 12.3 g/dL (13.0-17.5); RED BLOOD COUNT 4.31 x10^6/uL (4.30-5.70); RED CELL DISTRIBUTION WIDTH 14.5 % (11.5-14.5)
[2021-12-30 06:10] LABS: CALCIUM 8.6 mg/dL (8.5-10.1); CREATININE 1.1 mg/dL (0.7-1.3); GFR 63.6; POTASSIUM 3.5 mmol/L (3.5-5.1)
--- NOTE | 2021-12-30 08:02 | NUR ---
PT IS ON A HEPARIN DRIP. GOING BY PTT. LCRN
[2021-12-30] MEDS ORDERED: HEPARIN for IV BOLUS 10,000 UNIT/10 ML VIAL. ONE (08:37)
[2021-12-30] MEDS ORDERED: MIDAZOLAM HCL/PF 5 MG/5 ML VIAL. ONE (08:37)
[2021-12-30] MEDS ORDERED: fentaNYL PF VIAL 100 MCG/2 ML VIAL ONE (08:37)
[2021-12-30] MEDS ORDERED: IODIXANOL 320 MG/ML 100 ML VIAL. ONE (08:38)
[2021-12-30] MEDS ORDERED: LIDOCAINE WITH 8.4% SOD BICARB 3 ML DISP.SYRIN. ONE (08:39)
--- NOTE | 2021-12-30 08:40 | PDOC ---
SURGICAL PROGRESS NOTE DATE: 12/30/21 TIME: 08:37 Subjective Patient seen and examined at the bedside. He had no acute events overnight. Vital Signs Vital Signs Date Time Temp Pulse Resp B/P (MAP) Pulse Ox O2 Delivery O2 Flow Rate FiO2 12/30/21 07:00 98.5 87 18 123/63 (83) 96 Room Air 98.5 I&O Intake and Output 12/30/21 07:00 Intake Total 1100 ml Output Total 460 ml Balance 640 ml Intake Oral 1100 ml Output Urine Total 460 ml # Voids 1 General: Alert, Oriented X3, Cooperative HEENT: Atraumatic, PERRLA Lungs: Clear to auscultation Heart: Regular rate, Normal S1, Normal S2 Abdomen: Normal bowel sounds, Soft Extremities: No clubbing, No cyanosis, Other (Palpable femoral pulses bilaterally) Skin: Other (Chronic venous insufficiency skin changes bilaterally below the knee, no open ulcerations) Neuro: Normal speech, Strength at 5/5 X4 ext, Sensation intact, Cranial nerves 3-12 NL Psych/Mental Status: Mental status NL, Mood NL Labs Laboratory Tests Test 12/28/21 12:25 12/28/21 18:17 12/29/21 18:10 12/30/21 02:50 Heparin Anti-Xa Act, Unfractionated 0.59 IU/mL (0.30-0.70) 0.74 IU/mL (0.30-0.70) Activated Partial Thromboplast Time 47 SEC (24-38) 54 SEC (24-38) Test 12/30/21 05:30 12/30/21 07:50 White Blood Count 12.0 x10^3/uL (4.0-11.0) Red Blood Count 4.31 x10^6/uL (4.30-5.70) Hemoglobin 12.3 g/dL (13.0-17.5) Hematocrit 38.8 % (39.0-53.0) Mean Corpuscular Volume 90 fL (79-100) Mean Corpuscular Hemoglobin 29 pg (25-35) Mean Corpuscular Hemoglobin Concent 32 g/dL (31-37) Red Cell Distribution Width 14.5 % (11.5-14.5) Platelet Count 321 x10^3/uL (140-400) Sodium Level 139 mmol/L (136-145) Potassium Level 3.5 mmol/L (3.5-5.1) Chloride Level 101 mmol/L (98-107) Carbon Dioxide Level 28 mmol/L (21-32) Anion Gap 10 (6-14) Blood Urea Nitrogen 14 mg/dL (8-26) Creatinine 1.1 mg/dL (0.7-1.3) Estimated GFR (Cockcroft-Gault) 63.6 Glucose Level 121 mg/dL (70-99) Calcium Level 8.6 mg/dL (8.5-10.1) SARS-CoV-2 Antigen (Rapid) Negative (NEGATIVE) Laboratory Tests Test 12/29/21 18:10 12/30/21 02:50 12/30/21 05:30 12/30/21 07:50 Activated Partial Thromboplast Time 47 SEC (24-38) 54 SEC (24-38) White Blood Count 12.0 x10^3/uL (4.0-11.0) Red Blood Count 4.31 x10^6/uL (4.30-5.70) Hemoglobin 12.3 g/dL (13.0-17.5) Hematocrit 38.8 % (39.0-53.0) Mean Corpuscular Volume 90 fL (79-100) Mean Corpuscular Hemoglobin 29 pg (25-35) Mean Corpuscular Hemoglobin Concent 32 g/dL (31-37) Red Cell Distribution Width 14.5 % (11.5-14.5) Platelet Count 321 x10^3/uL (140-400) Sodium Level 139 mmol/L (136-145) Potassium Level 3.5 mmol/L (3.5-5.1) Chloride Level 101 mmol/L (98-107) Carbon Dioxide Level 28 mmol/L (21-32) Anion Gap 10 (6-14) Blood Urea Nitrogen 14 mg/dL (8-26) Creatinine 1.1 mg/dL (0.7-1.3) Estimated GFR (Cockcroft-Gault) 63.6 Glucose Level 121 mg/dL (70-99) Calcium Level 8.6 mg/dL (8.5-10.1) SARS-CoV-2 Antigen (Rapid) Negative (NEGATIVE) Problem List Peripheral arterial disease--we will plan on proceeding with aortogram with possible left lower extremity intervention today. I did review the patient's arterial duplex. The details of the procedure were discussed with the patient and he is agreeable to proceed. All questions were answered to his satisfaction regarding the procedure. I discussed the potential risks of acute renal failure and access site complications. He is agreeable to proceed. Juan A Riley DO, FACS Justicifation of Admission Dx: Justifications for Admission: Justification of Admission Dx: Yes Cellulitis: Cellulitis (pad) JUAN A RILEY DO Dec 30, 2021 08:40
[2021-12-30] MEDS ORDERED: IODIXANOL 320 MG/ML 100 ML VIAL. IART ONE (09:45)
[2021-12-30] MEDS ORDERED: MIDAZOLAM HCL/PF 5 MG/5 ML VIAL. IV ONE (09:45)
[2021-12-30] MEDS ORDERED: fentaNYL PF VIAL 100 MCG/2 ML VIAL IV ONE (09:45)
[2021-12-30] MEDS ORDERED: LIDOCAINE WITH 8.4% SOD BICARB 3 ML DISP.SYRIN. IJ ONE (09:45)
--- NOTE | 2021-12-30 10:06 | PDOC4 ---
BRIEF OPERATIVE NOTE Date: Dec 30, 2021 Pre-Op Diagnosis Peripheral arterial disease Post-Op Diagnosis Same Procedure Performed Introduction of catheter into the abdominal aorta Abdominal aortogram Bilateral lower extremity runoff Moderate sedation for the initial 15 minutes Moderate sedation for the subsequent 15 minutes for total moderate sedation time of 40 minutes Ultrasound-guided access of the right common femoral artery Right common femoral artery [employer] Surgeon Juan A Espinoza DO, LYSSA Anesthesia Type: Conscious Sedation Blood Loss None Specimens Obtained None Complications None Operative Note Patient was brought to the hybrid operating suite and placed in supine position. Next a timeout procedure was performed. Was confirmed that that we had all the appropriate instruments available within the room. There was an independent nurse who performed and administered all medications for moderate sedation. She was directly under my supervision during the case. We ensured that the patient had no contraindications to moderate sedation and we performed a preprocedure checklist including an airway evaluation. Patient had no contraindication to moderate sedation and had had no previous adverse reaction to moderate sedation or general anesthesia. A total of 1 mg of Versed and 50 mcg of fentanyl were administered and a total moderate sedation time of 40 minutes. At this point time a sterile ultrasound probe was used to identify the right common femoral artery. 1% lidocaine was infiltrated underneath the skin. Next under direct ultrasound guidance, a micro access needle was used to access the right common femoral artery. The ultrasound images were saved within the PACS system for billing purposes. Next a microwire was inserted under fluoroscopy guidance. A skin incision was made. Following this our needle was exchanged for a microsheath. Next a 035 J-wire was inserted into abdominal aorta under fluoroscopy guidance. Following this a flush catheter was inserted up to the level of L1. An abdominal aortogram was performed and the findings are as follows: The right and left renal arteries are widely patent, the proximal, mid, and distal abdominal aorta are widely patent. The right and left common iliac arteries are widely patent. The right and left hypogastric arteries are widely patent. The right and left external iliac arteries are widely patent. The left lower extremity arterial findings are as follows: The left common femoral artery is widely patent, the left profundofemoral artery is widely patent, the left superficial femoral artery has diffuse atherosclerotic disease however the lumen is preserved and there is very mild flow-limiting stenosis throughout the superficial femoral artery. The above and below-knee popliteal artery are patent. The patient has two-vessel runoff through the anterior tibial artery and peroneal artery to the level of the foot. The posterior tibial artery is occluded just distal to its origin but then reconstitutes at the ankle through collaterals. The right lower extremity angiogram findings are as follows: The right common femoral artery is widely patent. The right profundofemoral artery is widely patent. The right superficial femoral artery has diffuse atherosclerotic disease however the lumen is preserved and there is only very mild flow-limiting stenosis through the abductor canal. The above and below- knee popliteal artery are widely patent. In similar fashion he has two-vessel runoff through a dominant anterior tibial artery and peroneal artery to the foot. This point in time our sheath was withdrawn and our wire reinserted and her catheter removed. The vessel was determined safe for closure on the right. A Star close device was inserted and deployed successfully. Patient had excellent hemostasis at the access site. He was transferred to the post catheterization area in stable condition. Juan A Espinoza DO, JUAN A LR DO Dec 30, 2021 10:06
[2021-12-30] MEDS: ASPIRIN ENTERIC COATED 81 MG TABLET.DR. PO SCH (11:33)
[2021-12-30] MEDS: METOPROLOL TART IMMED RELEASE 25 MG TABLET. PO SCH ×2 (11:33→20:50)
[2021-12-30] MEDS: NYSTATIN TOPICAL POWDER 15GM BOTTLE. TP SCH ×2 (11:34→20:53)
--- NOTE | 2021-12-30 11:57 | PDOC ---
Provider Note Date of Service: DATE: 12/30/21 TIME: 11:55 Provider Note Provider Note Vascular surgery: Patient underwent arteriogram earlier today with Dr. Hernandezs. There was no disease amenable to intervention, he has diseased two-vessel runoff to both feet. No further arterial intervention indicated. Recommend continued compression stockings for his chronic venous disease and DVT. He does not need to remain on anticoagulation from our standpoint, will defer to medical team on how long he will need to continue this for his history of DVT. He does have IVC filter in place. We will sign off at this time. Please call with further questions or concerns. Justicifation of Admission Dx: Justifications for Admission: Justification of Admission Dx: Yes Cellulitis: Cellulitis (pad) BELINDA LARSON Dec 30, 2021 11:57
--- NOTE | 2021-12-30 11:59 | PDOC ---
ROBERT DUVAL REFUELING RAMPMAN 12/30/21 1159: CARDIO Progress Notes Date and Time Date of Service 12/30/2021 Time of Evaluation 1130 Subjective Subjective: No Chest Pain, No shortness of breath, No Palpitations Vitals Vitals Vital Signs Date Time Temp Pulse Resp B/P (MAP) Pulse Ox O2 Delivery O2 Flow Rate FiO2 12/30/21 11:33 87 120/64 12/30/21 10:38 98.0 20 96 Room Air 98.0 12/30/21 09:54 2.0 Weight Weight [ ] Input and Output Intake and Output Intake and Output 12/30/21 07:00 Intake Total 1100 ml Output Total 460 ml Balance 640 ml Intake Oral 1100 ml Output Urine Total 460 ml # Voids 1 Laboratory Labs Laboratory Tests Test 12/29/21 18:10 12/30/21 02:50 12/30/21 05:30 12/30/21 07:50 Activated Partial Thromboplast Time 47 SEC (24-38) 54 SEC (24-38) White Blood Count 12.0 x10^3/uL (4.0-11.0) Red Blood Count 4.31 x10^6/uL (4.30-5.70) Hemoglobin 12.3 g/dL (13.0-17.5) Hematocrit 38.8 % (39.0-53.0) Mean Corpuscular Volume 90 fL (79-100) Mean Corpuscular Hemoglobin 29 pg (25-35) Mean Corpuscular Hemoglobin Concent 32 g/dL (31-37) Red Cell Distribution Width 14.5 % (11.5-14.5) Platelet Count 321 x10^3/uL (140-400) Sodium Level 139 mmol/L (136-145) Potassium Level 3.5 mmol/L (3.5-5.1) Chloride Level 101 mmol/L (98-107) Carbon Dioxide Level 28 mmol/L (21-32) Anion Gap 10 (6-14) Blood Urea Nitrogen 14 mg/dL (8-26) Creatinine 1.1 mg/dL (0.7-1.3) Estimated GFR (Cockcroft-Gault) 63.6 Glucose Level 121 mg/dL (70-99) Calcium Level 8.6 mg/dL (8.5-10.1) SARS-CoV-2 Antigen (Rapid) Negative (NEGATIVE) Test 12/30/21 10:14 Activated Partial Thromboplast Time 34 SEC (24-38) Physical Exam HEENT: Neck Supple W Full Motion Chest: Symmetric LUNGS: Other (diminished bases) Heart: RRR (SR with intermittent PACs), no murmurs, jugular vein distention, irregularly irregular, other (tachy, no m) Abdomen: Soft N/T Extremities: No Calf Tenderness, Other (trace LE bilateral edema) Neurology: alert, oriented, follow commands Assessment Assessment 1. PAFIB: SR wih intermittent PACs 2. Hx of DVT with IVC 3. HTN: controlled 4. Mild bilateral PAD: S/P runoff today. no wounds 5. CAD: past PCI clinically stable 6. Moderate : EF and WM nl per TTE 7. Mild cognitive impairment: poor recall 8. Hypothyroidism: per PCP Recommendations 1. Restart xarelto tomorrow for stroke prevention. diltiazem for rate control 2. Secondary prevention measures 3. FLP then start on statin 4. Follow up in office if no establish breast buffer Justicifation of Admission Dx: Justifications for Admission: Justification of Admission Dx: Yes Cellulitis: Cellulitis (pad) NICHOLAS EARLY MD 12/31/21 0854: CARDIO Progress Notes Assessment Assessment Patient seen and examined 12/30/2021. Agree with DISTRICT AGENT's assessment and plan. PAF maintaining sinus rhythm. Agree with starting Xarelto. Prophylaxis CAD status clinically stable ROBERT DUVAL APRN Dec 30, 2021 11:59 NICHOLAS EARLY MD Dec 31, 2021 08:54
--- NOTE | 2021-12-30 12:21 | PDOC ---
[employer] PROGRESS NOTE Date of Service DOS: DATE: 12/30/21 TIME: 12:20 Chief Complaint Chief Complaint Acute bilateral DVT on imaging from [facility], heparin gtt Peripheral arterial disease - not an excellent historian, though seems to have exertional pain no rest claudication Acute diastolic CHF Atrial fibrillation with RVR Chronic diastolic CHF CAD s/p PCI/stenting. clinically stable Hypertension Hyperlipidemia Dementia Chronic venous insufficiency and recurrent DVT s/p IVC filter. was supposed to be taking Xarelto H/o CVA Hypothyroidism; last reported TSH 11. FEN - Cardiac diet PPX - heparin GTT FULL CODE Dispo - inpatient History of Present Illness History of Present Illness Mr Berman is an 86yo male with PMHx HTN, HLD, CAD, chronic diastolic CHF, CKD, dementia, and prior DVT with IVF filter in place who presented to [facility] in [place], [place] on 12/26/2021 with his family c/o leg discomfort with difficulty ambulating and progressive abdominal discomfort for the 3 days leading up to ED presentation. Family notes that he has not been eating well. At rest he does not have any pain complaints but with any ambulation he has complaints. He himself denies this though his family confirms. Labs with WBC 13.7, Hb 12.2, platelets 244, INR 1.1, PTT 26, NA 137, K4, BUN 18, CR 1.1, glucose 123, calcium 8.1, lactic acid 1.8, albumin 2.2, lipase 34, LFTs otherwise within normal laboratory limits, NT proBNP was 793 and high- sensitivity troponin was 8 Chest radiograph with mild interstitial thickening and small left pleural effusion Venous dopplers of bilateral lower extremities revealed bilateral DVTs. Arterial duplex bilateral lower extremities noted no flow in left distal posterior tibial and peroneal arteries and mildly elevated velocity in bilateral SFA. Due to left leg concern for occlusive disease he underwent CT angio aorta with femoral runoff which confirmed narrowing of bilateral SFAs and degraded evaluation for distal lower extremities due to contrast bolus timing. Due to concern for peripheral arterial disease left greater than right was initiated on heparin gtt and transferred to [facility] for vascular surgery evaluation and further care. 12/27: Seen bedside on heparin gtt. Went into afib with RVR, on dilt gtt. Has little bit of leg pain but otherwise no complaints today. No shortness of breath. Very weak and confused. 12/28: Seen bedside thinks his abdominal pain is better and leg pain is stable. He has not been up out of bed now been on heparin GTT for 48 hours. Heart rate and rhythm is variable now seems to be going in and out of sinus rhythm will obtain EKG consult cardiology. 12/29: Seen bedside. Still some decreased pulses in left leg. Discussed with vascular surgery will have selective angiography. Will transition from Eliquis back to heparin gtt. for this. Will ultimately need to be on metoprolol and Eliquis on discharge when ready in the next 1 few days but needs skilled services on discharge will [facility]. Discussed with nursing 12/30: Seen bedside. Discussed with vascular surgery CTA with runoff no significant arterial disease requiring intervention. Due to his bilateral DVTs and atrial fibrillation have discussed with cardiology patient should be on long-term anticoagulation and beta-jeff. Will initiate 25 mg of levothyroxine as this had not been previously initiated on a prior hospital stay and continue his home BPH medications. Discussed with son-in-law likely he needs acute rehab and penitentiary for discharge. Will start progressive ambulation with therapy. Patient has bilateral lower extremity pain and weakness and wants to get up out of bed Vitals/I&O Vitals/I&O: Vital Signs Date Time Temp Pulse Resp B/P (MAP) Pulse Ox O2 Delivery O2 Flow Rate FiO2 12/30/21 11:33 87 120/64 12/30/21 10:38 98.0 20 96 Room Air 98.0 12/30/21 09:54 2.0 I & O 12/29/21 12/29/21 12/30/21 15:00 23:00 07:00 Intake Total 180 ml 920 ml 0 ml Output Total 200 ml 150 ml 110 ml Balance -20 ml 770 ml -110 ml Physical Exam General: Alert, Oriented X3, Cooperative Heart: Regular rate, Normal S1, Normal S2 Abdomen: Normal bowel sounds, Soft Extremities: No clubbing, No cyanosis, Other (Palpable femoral pulses bilaterally) Skin: Other (Chronic venous insufficiency skin changes bilaterally below the knee, no open ulcerations) Labs Labs: Laboratory Tests Test 12/29/21 18:10 12/30/21 02:50 12/30/21 05:30 12/30/21 07:50 Activated Partial Thromboplast Time 47 SEC (24-38) 54 SEC (24-38) White Blood Count 12.0 x10^3/uL (4.0-11.0) Red Blood Count 4.31 x10^6/uL (4.30-5.70) Hemoglobin 12.3 g/dL (13.0-17.5) Hematocrit 38.8 % (39.0-53.0) Mean Corpuscular Volume 90 fL (79-100) Mean Corpuscular Hemoglobin 29 pg (25-35) Mean Corpuscular Hemoglobin Concent 32 g/dL (31-37) Red Cell Distribution Width 14.5 % (11.5-14.5) Platelet Count 321 x10^3/uL (140-400) Sodium Level 139 mmol/L (136-145) Potassium Level 3.5 mmol/L (3.5-5.1) Chloride Level 101 mmol/L (98-107) Carbon Dioxide Level 28 mmol/L (21-32) Anion Gap 10 (6-14) Blood Urea Nitrogen 14 mg/dL (8-26) Creatinine 1.1 mg/dL (0.7-1.3) Estimated GFR (Cockcroft-Gault) 63.6 Glucose Level 121 mg/dL (70-99) Calcium Level 8.6 mg/dL (8.5-10.1) SARS-CoV-2 Antigen (Rapid) Negative (NEGATIVE) Test 12/30/21 10:14 Activated Partial Thromboplast Time 34 SEC (24-38) Comment Review of Relevant I have reviewed the following items gary (where applicable) has been applied. Medications: Current Medications Medications (Trade) Dose Ordered Sig/Mckenzie Route PRN Reason Start Time Stop Time Status Last Admin Dose Admin Info (Anti-Coagulation Monitoring By Pharmacy) 1 each PRN DAILY PRN MC PER PROTOCOL 12/29/21 16:45 12/29/21 16:46 Heparin Sodium/ Sodium Chloride (HEPARIN for ARTERIAL LINE FLUSH) 1,000 unit 1X ONCE IART 12/30/21 09:45 12/30/21 09:46 DC 12/30/21 09:52 Heparin Sodium/ Sodium Chloride (HEPARIN for ARTERIAL LINE FLUSH) 1,000 unit 1X ONCE IART 12/30/21 09:45 12/30/21 09:46 DC 12/30/21 09:52 Lidocaine HCl (Buffered Lidocaine 1%) 3 ml 1X ONCE IJ 12/30/21 09:45 3/29/22 09:46 DC 12/30/21 09:51 Midazolam HCl (Versed) 5 mg 1X ONCE IV 12/30/21 09:45 12/30/21 09:46 DC 12/30/21 09:53 Fentanyl Citrate (Fentanyl 2ml Vial) 100 mcg 1X ONCE IV 12/30/21 09:45 12/30/21 09:46 DC 12/30/21 09:53 Iodixanol (Visipaque 320) 100 ml 1X ONCE IART 12/30/21 09:45 12/30/21 09:46 DC 12/30/21 09:51 Aspirin (Ecotrin) 81 mg [id number] PO 12/30/21 10:30 12/30/21 11:33 Justifications for Admission Other Justification GLORIA JAIMES MD Dec 30, 2021 12:21
--- NOTE | 2021-12-30 13:26 | NUR ---
SS following up with discharge planning. SS reviewed pt chart and discussed with pt RN. Pt is currently requiring oxygen at two liters nasal canula. PT/OT recommended care home unit. Pt had angiogram with runoff today. Pt accepted at [facility], ; fax [phone]. COVID19 test pending for placement. SS will continue to follow for discharge planning.
[2021-12-30] MEDS: FINASTERIDE 5 MG TABLET. PO SCH (14:12)
[2021-12-30] MEDS: LEVOTHYROXINE 25 MCG TABLET. PO SCH (14:12)
[2021-12-30] MEDS: traMADol 50 MG TABLET PO PRN (15:47)
[2021-12-30] MEDS: APIXABAN 5 MG TABLET. PO SCH (20:50)
[2021-12-30] MEDS: PSYLLIUM HUSK (SUGAR FREE) 1 PKT PACKET PO SCH (20:51)
[2021-12-30] MEDS ORDERED: TAMSULOSIN 0.4 MG CAP.ER.24H. PO SCH (21:00)
[2021-12-31 00:33] LABS: HEMOGLOBIN A1C 5.9 % (4.8-5.6)
[2021-12-31 01:39] LABS: HEMATOCRIT 37.5 % (39.0-53.0); HEMOGLOBIN 12.2 g/dL (13.0-17.5); RED BLOOD COUNT 4.16 x10^6/uL (4.30-5.70); RED CELL DISTRIBUTION WIDTH 14.6 % (11.5-14.5); WHITE BLOOD COUNT 10.2 x10^3/uL (4.0-11.0)
[2021-12-31 02:23] VITALS: BP 132/60
[2021-12-31] MEDS: LEVOTHYROXINE 25 MCG TABLET. PO SCH (06:01)
[2021-12-31 07:00] VITALS: BP 134/70
[2021-12-31] MEDS: APIXABAN 5 MG TABLET. PO SCH (08:31)
[2021-12-31] MEDS: FINASTERIDE 5 MG TABLET. PO SCH (08:31)
[2021-12-31] MEDS: ASPIRIN ENTERIC COATED 81 MG TABLET.DR. PO SCH (08:32)
[2021-12-31] MEDS: NYSTATIN TOPICAL POWDER 15GM BOTTLE. TP SCH (08:35)
[2021-12-31] MEDS: METOPROLOL TART IMMED RELEASE 25 MG TABLET. PO SCH (08:35)
[2021-12-31 11:00] VITALS: BP 121/62
--- NOTE | 2021-12-31 11:03 | PDOC3 ---
Discharge Summary Visit Information Date of Admission: Dec 26, 2021 Date of Discharge: Dec 31, 2021 Admitting Diagnosis: Bilateral lower extremity DVT Final Diagnosis Bilateral lower extremity DVT, Afib Brief Hospital Course Allergies Allergies Coded Allergies Type Severity Reaction Last Updated Verified No Known Drug Allergies 03/08/19 No Vital Signs Vital Signs Date Time Temp Pulse Resp B/P (MAP) Pulse Ox O2 Delivery O2 Flow Rate FiO2 12/31/21 08:35 88 134/70 12/31/21 08:00 Room Air 12/31/21 07:00 97.4 18 97 97.4 12/30/21 16:24 2.0 Lab Results Laboratory Tests Test 12/29/21 15:50 12/29/21 18:10 12/30/21 02:50 12/30/21 05:30 Coronavirus (COVID-19)(PCR) Not detected (NOT DETECTD) Activated Partial Thromboplast Time 47 SEC (24-38) 54 SEC (24-38) White Blood Count 12.0 x10^3/uL (4.0-11.0) Red Blood Count 4.31 x10^6/uL (4.30-5.70) Hemoglobin 12.3 g/dL (13.0-17.5) Hematocrit 38.8 % (39.0-53.0) Mean Corpuscular Volume 90 fL (79-100) Mean Corpuscular Hemoglobin 29 pg (25-35) Mean Corpuscular Hemoglobin Concent 32 g/dL (31-37) Red Cell Distribution Width 14.5 % (11.5-14.5) Platelet Count 321 x10^3/uL (140-400) Sodium Level 139 mmol/L (136-145) Potassium Level 3.5 mmol/L (3.5-5.1) Chloride Level 101 mmol/L (98-107) Carbon Dioxide Level 28 mmol/L (21-32) Anion Gap 10 (6-14) Blood Urea Nitrogen 14 mg/dL (8-26) Creatinine 1.1 mg/dL (0.7-1.3) Estimated GFR (Cockcroft-Gault) 63.6 Glucose Level 121 mg/dL (70-99) Hemoglobin A1c 5.9 % (4.8-5.6) Calcium Level 8.6 mg/dL (8.5-10.1) Triglycerides Level 64 mg/dL (0-150) Cholesterol Level 131 mg/dL (0-200) LDL Cholesterol, Calculated 85 mg/dL (0-100) VLDL Cholesterol, Calculated 13 mg/dL (0-40) Non-HDL Cholesterol Calculated 98 mg/dL (0-129) HDL Cholesterol 33 mg/dL (40-60) Cholesterol/HDL Ratio 4.0 Test 12/30/21 07:50 12/30/21 10:14 12/30/21 19:35 12/31/21 01:25 SARS-CoV-2 Antigen (Rapid) Negative (NEGATIVE) Activated Partial Thromboplast Time 34 SEC (24-38) 88 SEC (24-38) 118 SEC (24-38) White Blood Count 10.2 x10^3/uL (4.0-11.0) Red Blood Count 4.16 x10^6/uL (4.30-5.70) Hemoglobin 12.2 g/dL (13.0-17.5) Hematocrit 37.5 % (39.0-53.0) Mean Corpuscular Volume 90 fL (79-100) Mean Corpuscular Hemoglobin 29 pg (25-35) Mean Corpuscular Hemoglobin Concent 33 g/dL (31-37) Red Cell Distribution Width 14.6 % (11.5-14.5) Platelet Count 284 x10^3/uL (140-400) Laboratory Tests Test 12/30/21 19:35 12/31/21 01:25 Activated Partial Thromboplast Time 88 SEC (24-38) 118 SEC (24-38) White Blood Count 10.2 x10^3/uL (4.0-11.0) Red Blood Count 4.16 x10^6/uL (4.30-5.70) Hemoglobin 12.2 g/dL (13.0-17.5) Hematocrit 37.5 % (39.0-53.0) Mean Corpuscular Volume 90 fL (79-100) Mean Corpuscular Hemoglobin 29 pg (25-35) Mean Corpuscular Hemoglobin Concent 33 g/dL (31-37) Red Cell Distribution Width 14.6 % (11.5-14.5) Platelet Count 284 x10^3/uL (140-400) Brief Hospital Course Mr Berman is an 86yo male with PMHx HTN, HLD, CAD, chronic diastolic CHF, CKD, dementia, and prior DVT with IVF filter in place who presented to [facility] in [place], [place] on 12/26/2021 with his family c/o leg discomfort with difficulty ambulating and progressive abdominal discomfort for the 3 days leading up to ED presentation. Family notes that he has not been eating well. At rest he does not have any pain complaints but with any ambulation he has complaints. He himself denies this though his family confirms. Labs with WBC 13.7, Hb 12.2, platelets 244, INR 1.1, PTT 26, NA 137, K4, BUN 18, CR 1.1, glucose 123, calcium 8.1, lactic acid 1.8, albumin 2.2, lipase 34, LFTs otherwise within normal laboratory limits, NT proBNP was 793 and high- sensitivity troponin was 8 Chest radiograph with mild interstitial thickening and small left pleural effusion Venous dopplers of bilateral lower extremities revealed bilateral DVTs. Arterial duplex bilateral lower extremities noted no flow in left distal posterior tibial and peroneal arteries and mildly elevated velocity in bilateral SFA. Due to left leg concern for occlusive disease he underwent CT angio aorta with femoral runoff which confirmed narrowing of bilateral SFAs and degraded evaluation for distal lower extremities due to contrast bolus timing. Due to concern for peripheral arterial disease left greater than right was initiated on heparin gtt and transferred to [facility] for vascu lar surgery evaluation and further care. 12/27: Seen bedside on heparin gtt. Went into afib with RVR, on dilt gtt. Has little bit of leg pain but otherwise no complaints today. No shortness of breath. Very weak and confused. 12/28: Seen bedside thinks his abdominal pain is better and leg pain is stable. He has not been up out of bed now been on heparin GTT for 48 hours. Heart rate and rhythm is variable now seems to be going in and out of sinus rhythm will obtain EKG consult cardiology. 12/29: Seen bedside. Still some decreased pulses in left leg. Discussed with vascular surgery will have selective angiography. Will transition from Eliquis back to heparin gtt. for this. Will ultimately need to be on metoprolol and Eliquis on discharge when ready in the next 1 few days but needs skilled services on discharge will need longterm facility. Discussed with nursing 12/30: Seen bedside. Discussed with vascular surgery CTA with runoff no significant arterial disease requiring intervention. Due to his bilateral DVTs and atrial fibrillation have discussed with cardiology patient should be on long-term anticoagulation and beta-jeff. Will initiate 25 mg of levothyroxine as this had not been previously initiated on a prior hospital stay and continue his home BPH medications. Discussed with son-in-law likely he needs acute rehab and longterm for discharge. Will start progressive ambulation with therapy. Patient has bilateral lower extremity pain and weakness and wants to get up out of bed Consults: Cardiology, vascular surgery Problem list: Acute bilateral DVT on imaging from [facility], heparin gtt-->eliquis Peripheral arterial disease - not an excellent historian, though seems to have exertional pain no rest claudication Acute diastolic CHF Atrial fibrillation with RVR Chronic diastolic CHF CAD s/p PCI/stenting. clinically stable Hypertension Hyperlipidemia Dementia Chronic venous insufficiency and recurrent DVT s/p IVC filter. was supposed to be taking Xarelto, changed to eliquis based on CKD H/o CVA Hypothyroidism; last reported TSH 11. Prediabetes - A1c 5.9. Will start jardiance Greater than 30 minutes spent on d/c to SNF Discharge Information Condition at Discharge: Improved Follow Up: Weeks (1) Disposition/Orders: D/C to Another Facility Scheduled Info (No Known Medications Prior To Admisstion) Each, 1 EACH 1X for ., (Reported) Entered as Reported by: KATE CHRISTINA RN on 12/26/211812 Last Action: New Order on 12/26/211812 by KATE CHRISTINA RN Justicifation of Admission Dx: Justifications for Admission: Justification of Admission Dx: Yes Cellulitis: Cellulitis (pad) GLORIA JAIMES MD Dec 31, 2021 11:03
--- NOTE | 2021-12-31 11:12 | PDOC ---
ROBERT DUVAL FOREST AIDE 12/31/21 1112: CARDIO Progress Notes Date and Time Date of Service 12/31/2021 Time of Evaluation 1030 Subjective Subjective: No Chest Pain, No shortness of breath, No Palpitations Vitals Vitals Vital Signs Date Time Temp Pulse Resp B/P (MAP) Pulse Ox O2 Delivery O2 Flow Rate FiO2 12/31/21 08:35 88 134/70 12/31/21 08:00 Room Air 12/31/21 07:00 97.4 18 97 97.4 12/30/21 16:24 2.0 Weight Weight [ ] Input and Output Intake and Output Intake and Output 12/31/21 06:59 Intake Total 830 ml Output Total 400 ml Balance 430 ml Intake Oral 830 ml Output Urine Total 400 ml # Voids 1 Laboratory Labs Laboratory Tests Test 12/30/21 19:35 12/31/21 01:25 Activated Partial Thromboplast Time 88 SEC (24-38) 118 SEC (24-38) White Blood Count 10.2 x10^3/uL (4.0-11.0) Red Blood Count 4.16 x10^6/uL (4.30-5.70) Hemoglobin 12.2 g/dL (13.0-17.5) Hematocrit 37.5 % (39.0-53.0) Mean Corpuscular Volume 90 fL (79-100) Mean Corpuscular Hemoglobin 29 pg (25-35) Mean Corpuscular Hemoglobin Concent 33 g/dL (31-37) Red Cell Distribution Width 14.6 % (11.5-14.5) Platelet Count 284 x10^3/uL (140-400) Physical Exam HEENT: Neck Supple W Full Motion Chest: Symmetric LUNGS: Other (diminished bases) Heart: RRR (SR with intermittent PACs), no murmurs, jugular vein distention, irregularly irregular, other (tachy, no m) Abdomen: Soft N/T Extremities: No Calf Tenderness, Other (trace LE bilateral edema) Neurology: alert, oriented, follow commands Assessment Assessment 1. PAFIB: SR wih intermittent PACs 2. Hx of DVT with IVC 3. HTN: controlled 4. Mild bilateral PAD: S/P runoff today. no wounds 5. CAD: past PCI clinically stable 6. Moderate : EF and WM nl per TTE 7. Mild cognitive impairment: poor recall 8. Hypothyroidism: per PCP Recommendations 1. Now on eliquis for stroke prevention. Metoprolol for rate control 2. Secondary prevention measures 3. Start on statin 4. Follow up with Dr. Early on January 29 1015 AM 5. future outpt stress test 6. SNU today Justicifation of Admission Dx: Justifications for Admission: Justification of Admission Dx: Yes Cellulitis: Cellulitis (pad) NICHOLAS EARLY MD 12/31/21 1702: CARDIO Progress Notes Assessment Assessment Patient seen and examined 12/30/2021. Agree with ENGINE LATHE SET UP OPERATOR's assessment and plan. PAF maintaining sinus rhythm. Continue Eliquis. Prophylaxis CAD status clinically stable Follow-up as scheduled ROBERT DUVAL APRN Dec 31, 2021 11:12 NICHOLAS EARLY MD Dec 31, 2021 17:02
[2021-12-31] MEDS ORDERED: APIX5TAB PO (11:14)
[2021-12-31] MEDS ORDERED: METO25TA4 PO (11:14)
[2021-12-31] MEDS ORDERED: ACET325T21 PO (11:14)
[2021-12-31] MEDS ORDERED: LEVO25TA4 PO (11:14)
[2021-12-31] MEDS ORDERED: ASPI-886 PO (11:14)
[2021-12-31] MEDS ORDERED: FINA5TAB4 PO (11:14)
[2021-12-31] MEDS ORDERED: TAMS0.4C97 PO (11:14)
[2021-12-31] MEDS ORDERED: PSYL3.4P PO (11:14)
[2021-12-31] MEDS ORDERED: TRAM50TA PO (11:14)
--- NOTE | 2021-12-31 11:17 | SNU/HH DC ---
DISCHARGE ORDERS DISCHARGE INFORMATION: DISCHARGE DATE: Dec 31, 2021 FINAL DIAGNOSIS Bilateral lower extremity DVT CONDITION ON DISCHARGE: Stable CODE STATUS: Code Status: Full LONGTERM: SNF STAY <30 DAYS: Yes POST DISCHARGE ORDERS: ACTIVITY ORDERS: Resume previous activity WEIGHT BEARING STATUS: Full weight bearing DIET AFTER DISCHARGE: Cardiac WOUND/INCISION CARE: Reinforce dressing PRN CHECKS AFTER DISCHARGE: CHECKS AFTER DISCHARGE: Check blood press - daily, Check blood sugar, ac/hs, Check your Temp as needed TREATMENT/EQUIPMENT ORDERS: Physical Therapy For: Evalulation/Treatment Occupational Therapy For: Evaluation/Treatment DISCHARGE MEDICATIONS: Home Meds Active Scripts Tramadol Hcl (TRAMADOL HCL) 50 Mg Tablet, 50 MG PO PRN Q6HRS PRN for PAIN for 6 Days, #24 TAB Prov:GLORIA JAIMES MD 12/31/21 Psyllium Husk/Aspartame (METAMUCIL FIBER SINGLES PACKET) 3.4 Gm Powd.pack, 1 PKT PO QHS for Constipation for 30 Days, #30 PKT 11 Refills Prov:GLORIA JAIMES MD 12/31/21 Finasteride (FINASTERIDE) 5 Mg Tablet, 5 MG PO DAILY for BPH for 30 Days, #30 TAB 11 Refills Prov:GLORIA JAIMES MD 12/31/21 Levothyroxine Sodium (LEVOTHYROXINE SODIUM) 25 Mcg Tablet, 25 MCG PO DAILY06 for Hypothyroidism for 30 Days, #30 TAB 11 Refills Prov:GLORIA JAIMES MD 12/31/21 Acetaminophen (ACETAMINOPHEN) 325 Mg Tablet, 650 MG PO PRN Q6HRS PRN for MILD PAIN / TEMP > 100.3'F for 30 Days, #120 TAB 11 Refills Prov:GLORIA JAIMES MD 12/31/21 Aspirin (ASPIRIN EC) 81 Mg Tablet.dr, 81 MG PO DAILYWBKFT for CAD/PAD for 30 Days, #30 TAB.SR 11 Refills Prov:GLORIA JAIMES MD 12/31/21 Metoprolol Tartrate (METOPROLOL TARTRATE) 25 Mg Tablet, 25 MG PO BID for Afib for 30 Days, #60 TAB 11 Refills Prov:GLORIA JAIMES MD 12/31/21 Apixaban (ELIQUIS) 5 Mg Tablet, 5 MG PO BID for Afib/DVT for 30 Days, #60 TAB 11 Refills Prov:GLORIA JAIMES MD 12/31/21 Tamsulosin Hcl (FLOMAX) 0.4 Mg Cap.er.24h, 0.4 MG PO QHS for BPH for 30 Days, #30 CAP.SR 11 Refills Prov:GLORIA JAIMES MD 12/31/21 Reported Medications Info (NO KNOWN MEDICATIONS PRIOR TO ADMISSTION) Each, 1 EACH 1X for ., EACH 12/26/21 GLORIA JAIMES MD Dec 31, 2021 11:17
--- NOTE | 2021-12-31 11:47 | NUR ---
SS following up with discharge planning. SS reviewed pt chart and discussed with pt RN. Pt is currently on room air. PT/OT recommended [facility] unit. Pt accepted at [facility], ; fax [phone]. COVID19 negative. Discharge orders received and sent to [facility]. Pt will discharge today and go to [facility] at 1230 via [facility] transport, [id number]. Pt, pt's RN, and pt's family notified.
[2021-12-31] MEDS ORDERED: ATOR10TA60 PO (12:15)
[2021-12-31] MEDS ORDERED: ATORVASTATIN CALCIUM 10 MG TABLET. PO SCH (21:00)
== END 2021-12-31 12:45 | DRG 299 ==
LOC: 6 SOUTH 17:51
PROVIDERS: ADMIT Internal Medicine; ATTEND Internal Medicine
PROC: B41D1ZZ Fluoroscopy of Aorta and Bilateral Lower Extremity Arteries using Low Osmolar Contrast (ICD-10-PCS; principal; 2021-12-30)
DX: I82.403 Acute embolism and thrombosis of unspecified deep veins of lower extremity, bilateral (principal); I50.33 Acute on chronic diastolic (congestive) heart failure; I13.0 Hypertensive heart and chronic kidney disease with heart failure and stage 1 through stage 4 chronic kidney disease, or unspecified chronic kidney disease; Z20.822 Contact with and (suspected) exposure to COVID-19; E03.9 Hypothyroidism, unspecified; E78.5 Hyperlipidemia, unspecified; F03.90 Unspecified dementia, unspecified severity, without behavioral disturbance, psychotic disturbance, mood disturbance, and anxiety; I25.10 Atherosclerotic heart disease of native coronary artery without angina pectoris; I48.0 Paroxysmal atrial fibrillation; I73.9 Peripheral vascular disease, unspecified; I35.0 Nonrheumatic aortic (valve) stenosis; I87.2 Venous insufficiency (chronic) (peripheral); L97.529 Non-pressure chronic ulcer of other part of left foot with unspecified severity; N18.9 Chronic kidney disease, unspecified; R73.03 Prediabetes; Z79.01 Long term (current) use of anticoagulants; Z86.73 Personal history of transient ischemic attack (TIA), and cerebral infarction without residual deficits; Z95.5 Presence of coronary angioplasty implant and graft; Z95.828 Presence of other vascular implants and grafts
CPT/HCPCS: 36415; 75625; 75716; 76937; 80048; 80053; 80061; 83036; 83880; 85025; 85027; 85520; 85730; 87426; 93005; 93306; 99152; 99153; C1769; C1892; C1894; G0269; J1644; J2250; J3010; J3490; J7060; Q9967; U0003; 97110-GP; 97530-GP; 97535-GO; C8929; G0378